=== PATIENT | female | born 1970 | race Caucasian/White ===

== ENCOUNTER 2018-11-24 09:46 | Emergency (ER) | payer OTHER | END 2018-11-24 11:30 | disposition home or self-care (01) | LOC: NAV ERS 09:46 | DX: M79.662 Pain in left lower leg (principal); Z86.718 Personal history of other venous thrombosis and embolism | CPT/HCPCS: 85379; 99283 ==

== ENCOUNTER 2022-08-18 20:47 | Emergency (ER) | payer OTHER, SELFPAY ==
[2022-08-18 21:30] LABS: #Basophils 0.1 thou/uL (0.0-0.2); #Eosinphils 0.1 thou/uL (0.0-0.7); #Lymphocytes 2.6 thou/uL (1.20-3.40); #Monocytes 0.8 thou/uL (0.11-0.59); %Basophils 1.1 % (0.0-1.0); %Lymphocytes 26.8 % (21.0-51.0); %Monocytes 8.4 % (0.0-10.0); %Neutrophils 62.7 % (42.0-75.0); Hemoglobin 13.9 g/dL (12.0-16.0); Mean Corpuscular HGB CONC 33.7 g/dL (32.0-36.0); Mean Corpuscular Hemoglobin 30.4 pg (27.0-31.0); Mean Corpuscular Volume 90.2 fL (78.0-98.0); Mean Platelet Volume 8.9 fL (7.4-10.4); Platelet Count 248 thou/uL (130-400); RBC Distribution Width 12.3 % (11.5-14.5); Red Blood Cell (RBC) Count 4.56 mill/uL (4.20-5.40); White Blood Cell (WBC) Count 9.5 thou/uL (4.8-10.8)
[2022-08-18 21:42] LABS: PTT 29.8 sec (22.9-36.1); Prothrombin Time 13.7 sec (12.0-14.7)
[2022-08-18 21:44] LABS: Anion Gap 22 mmol/L (10-20); BUN (Urea Nitrogen) 21 mg/dL (9.8-20.1); CK (CPK) 72 U/L (29-168); Calc. Creatinine Clearance 0 mL/min (70-130); Carbon Dioxide 22 mmol/L (22-29); Chloride 102 mmol/L (98-107); Estimated GFR 78; Glucose 98 mg/dL (70-105); Sodium 141 mmol/L (136-145)
[2022-08-18 21:48] LABS: Potassium 4.6 mmol/L (3.5-5.1)
[2022-08-18 21:54] LABS: D-Dimer Test 0.74 *mcg/mL (0.27-0.43)
== END 2022-08-18 22:25 | disposition short-term general hospital (02) ==
LOC: NAV ERS 20:47
DX: M79.662 Pain in left lower leg (principal); M79.661 Pain in right lower leg; Z87.891 Personal history of nicotine dependence
CPT/HCPCS: 80048; 82550; 85025; 85379; 85610; 85730; 99284

== ENCOUNTER 2025-06-17 08:22 | Outpatient (CLI) | payer OTHER | END 2025-06-17 08:23 | disposition home or self-care (01) | LOC: NAV RAD 08:22 | DX: C7A.090 Malignant carcinoid tumor of the bronchus and lung (principal); R91.8 Other nonspecific abnormal finding of lung field; Z90.2 Acquired absence of lung [part of] | CPT/HCPCS: 71046 ==